=== PATIENT | female | born 1925 | race Caucasian/White ===

== ENCOUNTER 2017-06-29 18:36 | Emergency (ER) | payer OTHER ==
[2017-06-29 18:47] VITALS: BP 149/84; PULSE 104; TEMP 98.4; BMI 28.3
--- NOTE | 2017-06-29 18:48 | PDOC ---
Rapid Medical Evaluation Time Seen by Provider: 06/29/17 18:41 Medical Evaluation: Allergies Allergy/AdvReac Type Severity Reaction Status Date / Time No Known Allergies Allergy Unverified 06/29/17 18:41 06/29/17 18:44 The patient presents with a chief complaint of: [Weakness to the left arm for one week. Had rash to the same at the end of May. Was sent by Dr. Schmidt, Requesting CT scan as per daughter. . ] I have performed a brief in-person evaluation of this patient. Pertinent physical exam findings: vss, [Dried rash to the left arm. Weakness to the left arm, No drift, no facial droop, speech is normal. ] I have ordered the following: [Head CT, CBC, CMP, Coags] The patient will proceed to the ED for further evaluation. Discharge Disposition - Diagnosis Weakness - Referrals - Patient Instructions - Post Discharge Activity
[2017-06-29 19:37] LABS: BASO % 0.8 % (0-2.0); EOS % 1.2 % (0-4.5); HEMATOCRIT 40.4 % (32.4-45.2); LYMPH % 32.9 % (8-40); MCH 28.8 pg (25.7-33.7); MCHC 32.1 g/dl (32.0-36.0); MEAN CELL VOLUME 89.8 fl (80-96); MEAN PLT VOLUME 9.2 fl (7.5-11.1); NEUT % 58.1 % (42.8-82.8); PLATELET COUNT 285 K/MM3 (134-434); RDW 15.6 % (11.6-15.6); WHITE BLOOD COUNT 13.1 K/mm3 (4.0-10.0)
[2017-06-29 19:50] LABS: INR 0.89 (0.82-1.09); PROTHROMBIN TIME (PATIENT) 10.1 SEC (9.98-11.88)
[2017-06-29 19:52] LABS: ACTIVATED PTT 30.1 SECONDS (26.9-34.4)
[2017-06-29 20:06] LABS: ALBUMIN 3.9 g/dl (3.4-5.0); ANION GAP 11 (8-16); BLOOD UREA NITROGEN 27 mg/dL (7-18); CALCIUM 8.8 mg/dL (8.5-10.1); CHLORIDE 99 mmol/L (98-107); CO2 27 mmol/L (21-32); GLUCOSE,RANDOM 243 mg/dL (74-106); POTASSIUM 3.5 mmol/L (3.5-5.1); SODIUM 137 mmol/L (136-145)
[2017-06-29 20:09] LABS: ALK PHOS 115 U/L (45-117); BILIRUBIN,TOTAL 0.5 mg/dL (0.2-1.0); CREATININE 1.7 mg/dL (0.55-1.02); SGOT/AST 12 U/L (15-37); SGPT/ALT 15 U/L (12-78); TOT PROT 7.5 g/dl (6.4-8.2)
--- NOTE | 2017-06-29 21:12 | PDOC ---
History of Present Illness - General Chief Complaint: CVA/TIA Stated Complaint: PCP SENT Time Seen by Provider: 06/29/17 18:41 History Source: Patient, Family (Daughter at bedside) Exam Limitations: No Limitations - History of Present Illness Initial Comments: 06/29/17 21:08 The patient is an 89F with a PMH of DM who presents to the ER from the PCP's office. The patient has been experiencing weakness in her L hand for 1 week. She went to see Dr. Schmidt and he sent them to the ER for evaluation. The patient knows that she is outside any treatment window but came "just in case". She denies any other acute complaints besides the L hand numbness and weakness. Past History - Past Medical History Allergies/Adverse Reactions: Allergies Allergy/AdvReac Type Severity Reaction Status Date / Time No Known Allergies Allergy Unverified 06/29/17 18:41 Home Medications: Ambulatory Orders Aspirin 81 mg PO 02/23/14 COPD: No Diabetes: Yes HTN: Yes - Suicide/Smoking/Psychosocial Hx Smoking History: Never smoked Have you smoked in the past 12 months: No Information on smoking cessation initiated: No Hx Alcohol Use: No Drug/Substance Use Hx: No Substance Use Type: None Review of Systems - Review of Systems Able to Perform ROS?: Yes Comments:: 06/29/17 21:10 GENERAL/CONSTITUTIONAL: No fever or chills. No weakness. HEAD, EYES, EARS, NOSE AND THROAT: No change in vision. No ear pain or discharge. No sore throat. CARDIOVASCULAR: No chest pain, palpitations, or lightheadedness. RESPIRATORY: No cough, wheezing, shortness of breath, or hemoptysis. GASTROINTESTINAL: No nausea, vomiting, diarrhea, constipation, or abdominal pain. GENITOURINARY: No dysuria, frequency, hematuria, or change in urination. MUSCULOSKELETAL: No joint or muscle swelling or pain. No neck or back pain. SKIN: No rash or lesions. NEUROLOGIC: Positive for L hand numbness and weakness. No headache, numbness, tingling, weakness, loss of consciousness, or change in strength/sensation. ENDOCRINE: No increased thirst. No abnormal weight change. HEMATOLOGIC/LYMPHATIC: No anemia, easy bleeding, or history of blood clots. ALLERGIC/IMMUNOLOGIC: No hives or skin allergy. Is the patient limited Barbadian proficient: No *Physical Exam - Vital Signs Last Vital Signs Temp Pulse Resp BP Pulse Ox 98.4 F 104 H 18 149/84 100 06/29/17 18:42 06/29/17 18:42 06/29/17 18:42 06/29/17 18:42 06/29/17 18:42 - Physical Exam Comments: 06/29/17 21:10 GENERAL: Well developed, well nourished. Awake and alert. No acute distress. HEENT: Normocephalic, atraumatic. Hearing grossly normal. Moist mucous membranes. PERRLA, EOMI. No conjunctival pallor. Sclera are non-icteric. Oropharynx is clear. NECK: Supple. Full ROM. No JVD. Carotid pulses 2+ and symmetric, without bruits. No thyromegaly. No lymphadenopathy. CARDIOVASCULAR: Regular rate and rhythm. No murmurs, rubs, or gallops. Distal pulses are 2+ and symmetric. PULMONARY: No evidence of respiratory distress. Lungs clear to auscultation bilaterally. No wheezing, rales or rhonchi. ABDOMINAL: Soft. Non-tender. Non-distended. No rebound or guarding. No organomegaly. Normoactive bowel sounds. GENITOURINARY: No CVA tenderness bilaterally. MUSCULOSKELETAL: Normal range of motion at all joints. No bony deformities or tenderness. EXTREMITIES: No cyanosis. No clubbing. No edema. No calf tenderness. SKIN: Warm and dry. Normal capillary refill. No rashes. No jaundice. NEUROLOGICAL: Alert, awake, appropriate. Cranial nerves 2-12 intact. No deficits to light touch and temperature in face, upper extremities and lower extremities. Weakness in L hand. Normal speech. Gait is normal without ataxia. PSYCHIATRIC: Cooperative. Good eye contact. Appropriate mood and affect. ED Treatment Course - LABORATORY CBC & Chemistry Diagram: 06/29/17 19:02 06/29/17 19:02 - ADDITIONAL ORDERS Additional order review: Laboratory Results 06/29/17 06/29/17 19:02 19:02 PT with INR 10.10 INR 0.89 PTT (Actin FS) 30.1 Sodium 137 Potassium 3.5 Chloride 99 Carbon Dioxide 27 Anion Gap 11 BUN 27 H Creatinine 1.7 H Creat Clearance w eGFR 28.30 Random Glucose 243 H Calcium 8.8 Total Bilirubin 0.5 AST 12 L ALT 15 Alkaline Phosphatase 115 Total Protein 7.5 Albumin 3.9 06/29/17 19:02 RBC 4.50 MCV 89.8 MCHC 32.1 RDW 15.6 MPV 9.2 Neutrophils % 58.1 Lymphocytes % 32.9 Monocytes % 7.0 Eosinophils % 1.2 Basophils % 0.8 Medical Decision Making - Medical Decision Making 06/29/17 21:10 The patient is an 89F with a PMH of DM who presents with 7 days of L hand numbness and weakness. CT negative for acute pathology. Pt will f/u with Dr. Cota outpatient. Pt agrees. *DC/Admit/Observation/Transfer Diagnosis at time of Disposition: Weakness - Discharge Dispostion Disposition: HOME Condition at time of disposition: Stable Admit: No - Referrals Referrals: Kolby Schmidt MD [Primary Care Provider] - - Patient Instructions Printed Discharge Instructions: DI for Stroke-Ischemic Additional Instructions: Please return to the ER if symptoms persist, worsen, or new symptoms arise. Please follow up with your primary care physician in 2-3 days. Please return to the ER if you have any signs or symptoms of chest pain, shortness of breath, uncontrollable fever, chills, nausea, vomiting, numbness, tingling, or weakness in any part of your body, changes in vision, or slurred speech. Por favor regrese a la alejandra de emergencias si los sntomas persisten, empeoran o surgen nuevos sntomas. Por favor, lillie un seguimiento con hayes mdico de atencin primaria en 2-3 [place]. Por favor regrese a la alejandra de emergencia si tiene signos o sntomas de dolor en el pecho, dificultad para respirar, fiebre incontrolable, escalofros, n useas, vmitos, entumecimiento, hormigueo o debilidad en cualquier parte de hayes cuerpo, cambios en la visin o dificultad para hablar. Print Language: VIETNAMESE - Post Discharge Activity
== END 2017-06-29 21:38 | disposition home or self-care (01) ==
LOC: JER 18:36
DX: R53.1 Weakness (principal)
CPT/HCPCS: 36415; 70450-TC; 80053; 85025; 85610; 85730; 99283-25